=== PATIENT | female | born 1955 | race Caucasian/White ===

== ENCOUNTER 2019-08-10 10:33 | Outpatient (CLI) | payer MEDICARE ==
--- NOTE | 2019-08-10 11:22 | MMO ---
Left Breast MAMMO Unilat Diag [facility]DI LT+KAMLA. CLINICAL HISTORY: Patient is 64 years old and is seen for diagnostic exam. The patient has the following family history of breast cancer: mother, malignant (generic), 60-70. The patient has no personal history of cancer. VIEWS: The views performed were: left mediolateral oblique spot compression with tomosynthesis and left mediolateral with tomosynthesis. FILMS COMPARED: The present examination has been compared to a prior imaging study performed at [facility] on 07/29/2019. This study has been interpreted with the assistance of computer-aided detection. MAMMOGRAM FINDINGS: There are scattered fibroglandular densities. The asymmetry seen at screening mammography does not persist at additional imaging, compatible with superimposed tissue. There are no suspicious masses, suspicious calcifications, or new areas of architectural distortion. IMPRESSION: THERE IS NO MAMMOGRAPHIC EVIDENCE OF MALIGNANCY. A ROUTINE FOLLOW-UP MAMMOGRAM IN 1 YEAR IS RECOMMENDED. THE RESULTS OF THIS EXAM WERE SENT TO THE PATIENT. ACR BI-RADS Category 2 - Benign finding MAMMOGRAPHY NOTE: 1. A negative mammogram report should not delay a biopsy if a dominant of clinically suspicious mass is present. 2. Approximately 10% to 15% of breast cancers are not detected by mammography. 3. Adenosis and dense breasts may obscure an underlying neoplasm. Reported by: CELE WEAVER MD Electonically Signed: [id number]
== END 2019-08-10 10:34 | disposition home or self-care (01) ==
LOC: BICMAMMO 10:33
PROVIDERS: ATTEND Family Medicine Sports Medicine
DX: R92.8 Other abnormal and inconclusive findings on diagnostic imaging of breast (principal)
CPT/HCPCS: 77065; G0279

== ENCOUNTER 2019-12-23 09:51 | Outpatient (CLI) | payer MEDICARE ==
--- NOTE | 2019-12-23 11:50 | CT ---
CT of the abdomen with and without contrast INDICATION: Left renal mass COMPARISON: Renal ultrasound dated December 02, [address] of the abdomen and pelvis with and witho ut contrast from the [facility] dated October 26, 2008. TECHNIQUE: Axial noncontrast CT the abdomen, nephrographic phase axial CT the abdomen and delayed pha se axial CT of the abdomen were obtained. Sagittal and coronal reformats were constructed from the delayed phase imaging series. FINDINGS: Kidneys: The rounded cortical prominence involving the left mid kidney seen on the comparison ultraso und likely corresponds to a mildly prominent column of Wilver that appears stable in configuration to the prior CT evaluation in 2008. No definite solid renal lesion is evident. There is a small subce ntimeter cyst involving the superior pole of the left kidney measuring 4.6 mm. No renal calculus is evident. No gross urothelial lesion is seen involving the proximal renal collecting systems on the de layed phase exam. Liver: There are numerous calcified granuloma within the liver. Gallbladder: Surgically absent Pancreas: Normal. Adrenal glands: Normal. Spleen: Normal. Retroperitoneum: No enlarged lymph nodes. Vasculature: There are mild vascular calcifications seen involving the visualized vasculature. Visualized small and large bowel: Is a mild amount of retained stool within the colon. Soft tissues: There is an anterior abdominal wall midline hernia containing omental fat with the zan ia mouth measuring 5.5 cm on image 32 of series 4. This has developed in the interim from the comparison CT in 2008. 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 This has mildly grow n from the comparison exam. There is diffuse osteopenia. There is scattered degenerative and osteoarthritic change present. IMPRESSION: 1. The rounded cortical prominence seen in the comparison ultrasound involving the left mid kidney li esequiel corresponds to a prominent column of Wilver. No definite focal solid renal lesion is evident. 2. Mild amount of retained stool within the colon. 3. Interval development of an anterior upper midline abdominal wall hernia containing omental fat. Transcribed Date/Time: 12/23/2019 1:02 PM
[2019-12-23] MEDS ORDERED: Iopamidol-370 76% 500 ML 1 ML ONE (13:30)
== END 2019-12-23 09:52 | disposition home or self-care (01) ==
LOC: BICCT 09:51
PROVIDERS: ATTEND Internal Medicine Nephrology
DX: N18.9 Chronic kidney disease, unspecified (principal); K59.00 Constipation, unspecified; K43.9 Ventral hernia without obstruction or gangrene
CPT/HCPCS: 36415; 74170; 80048; Q9967